=== PATIENT | female | born 1990 | race Caucasian/White ===

== ENCOUNTER 2020-05-15 14:10 | Emergency (ER) | payer SELFPAY ==
[~2020-05-15] VITALS: Ht 172.7 cm; Wt 59.0 kg
== END 2020-05-15 14:22 | disposition home or self-care (01) ==
LOC: ER 14:10
DX: M79.602 Pain in left arm (principal); V49.9XXA Car occupant (driver) (passenger) injured in unspecified traffic accident, initial encounter; Y92.410 Unspecified street and highway as the place of occurrence of the external cause
CPT/HCPCS: 99284